=== PATIENT | male | born 1935 | race Caucasian/White ===

== ENCOUNTER → 2016-12-19 | Outpatient (CLI) | payer OTHER, BC ==
[~2016-12-19] MED LIST: ACET325T96 PO; ASPEC81 PO; ATOR-24 PO; CMD5 PO; DIGO0.122 PO; GABA-112 PO; LOSA1TAB PO; MULT-506 PO; TPRSR50 PO
--- NOTE | 2016-12-25 10:26 | CODING QUERY MEDICAL NECESSITY ---
SUPPORTING DIAGNOSIS NEEDED A supporting diagnosis is required for the test/procedure performed on this patient in order for us to be reimbursed by the patient's insurance. Please provide a supporting diagnosis for the following test/procedure listed below next to the test name along with your signature. *If there is no additional diagnosis for this patient that would support the following test/procedure please document that below next to the test/procedure. Test(s)/Procedure(s) that require a supporting diagnosis: DOS 12/19 * PSA DIAGNOSIS: Provider Signature: Date: Thank you Mon[facility] Once completed, please kindly fax back to [phone] For questions please call [phone]
== END | disposition home or self-care (01) ==
LOC: C.LABMFLN 09:48
PROVIDERS: ATTEND Urology
DX: C67.9 Malignant neoplasm of bladder, unspecified (principal); C61 Malignant neoplasm of prostate

== ENCOUNTER → 2017-09-30 | Outpatient (CLI) | payer OTHER, BC ==
[~2017-09-30] MED LIST changes: +ACET-1693 PO; -ACET325T96 PO
[2017-09-30 13:00] LABS: BLOOD UREA NITROGEN 16 mg/dl (7-18); CREATININE 0.78 mg/dl (0.60-1.40)
== END | disposition home or self-care (01) ==
LOC: C.LABMFLN 10:11
PROVIDERS: ATTEND Urology
DX: R31.0 Gross hematuria (principal); C67.9 Malignant neoplasm of bladder, unspecified; C61 Malignant neoplasm of prostate

== ENCOUNTER → 2017-10-19 | Outpatient (CLI) | payer OTHER, BC ==
[~2017-10-19] MED LIST changes: -ACET-1693 PO; +ACET325T96 PO; +OPTIRAY 320 IV PRN
--- NOTE | 2017-10-19 12:03 | DIAGNOSTIC IMAGING REPORT ---
CT UROGRAM CLINICAL HISTORY: Gross hematuria. Bladder cancer. COMPARISON STUDY: Abdominal CT scans dated 02/12/2016 and 02/22/2016. TECHNIQUE: Before and following the IV administration of 95 cc of Optiray 320, CT urogram of the abdomen and pelvis is performed from the lung bases to the proximal femora. Images are reviewed in the axial, sagittal, and coronal planes. IV contrast was administered without complication. A dose lowering technique was utilized adhering to the principles of ALARA. CT DOSE: 1737.80 mGycm FINDINGS: Lung bases: The heart is enlarged and without pericardial effusion. Pacemaker leads are noted. The lung bases are clear noting bibasilar scarring/atelectasis. There is a tiny hiatal hernia. Liver: The contrast-enhanced liver is normal in size, contour, and attenuation. Fatty infiltration is seen adjacent to falciform ligament. There is no intrahepatic biliary ductal dilatation. The hepatic veins and portal veins are patent. Gallbladder: Surgically absent noting clips in the gallbladder fossa. Spleen: Normal in size and attenuation. Pancreas: Unremarkable. Adrenal glands: Unremarkable. Kidneys and ureters: The contrast enhanced kidneys demonstrate cortical atrophy and are without hydronephrosis. There are least 4 nonobstructing left or a calculi measuring up to 5 mm. At least 3 nonobstructing right renal calculi measuring up to 3 mm. The kidneys enhance and excrete symmetrically. There is no enhancing renal cortical mass lesion identified. A 2.5 cm cyst is noted in the right kidney. There is no evidence of urothelial lesion within the renal pelvis bilaterally. There is nonspecific urothelial thickening suggested involving the distal left ureter just above the ileal conduit. This is best seen on axial image #264. Abdominal vasculature: The abdominal aorta is normal in course and caliber noting advanced atherosclerotic calcification. Bowel: Postoperative changes are consistent with a right lower quadrant urostomy. No bowel obstruction is seen. The appendix is well-visualized and normal. Submucosal fat deposition is noted in the distal ileum and colon. Mild wall thickening and hyperemia is suggested involving small bowel loops in the upper pelvis (axial image #267). No surrounding inflammatory change is identified. Peritoneum: There is no intraperitoneal free air or abdominal ascites. Lymphadenopathy: There are mildly enlarged portacaval lymph nodes which measure up to 1.6 cm in short axis. Prominent superior retroperitoneal nodes measure up to 9 mm in short axis. Pelvic viscera: The bladder, prostate, and seminal vesicles are surgically absent. Skeletal structures: The skeletal structures are osteopenic. There is moderate to advanced lumbar sacral spondylosis and scoliosis. There is near complete fusion of the sacroiliac joints. No lytic or blastic lesions are seen. IMPRESSION: 1. There are postoperative changes from cystectomy and right lower quadrant urostomy. 2. The kidneys demonstrate cortical atrophy and are without hydronephrosis. 3. There are numerous small bilateral nonobstructing renal calculi. 4. No enhancing renal cortical mass is identified. 5. There is no clear evidence of urothelial lesion. Nonspecific urothelial thickening is seen involving the distal left ureter just above the ileal conduit. This is of indeterminate etiology and significance. 6. Mild wall thickening and hyperemia is suggested involving loops of small bowel in the upper pelvis. No surrounding inflammatory change is seen. This is nonspecific and may represent a mild infectious/inflammatory enteritis. Additionally, there is submucosal fat deposition seen throughout the small bowel and colon. This is nonspecific but suggests chronic inflammation. Clinical correlation will be essential. 7. Cardiomegaly. 8. Mildly enlarged portacaval and upper retroperitoneal lymph nodes identified. These are nonspecific and similar to previous. 9. Additional findings as above. Electronically signed by: Talat Robin M.D. 10/19/2017 12:01 PM Dictated Date/Time: 10/19/2017 11:48 AM
== END | disposition home or self-care (01) ==
LOC: C.CTS 10:43
PROVIDERS: ATTEND Urology
DX: C67.9 Malignant neoplasm of bladder, unspecified (principal); R31.0 Gross hematuria; N26.1 Atrophy of kidney (terminal); N20.0 Calculus of kidney; Z90.6 Acquired absence of other parts of urinary tract; Z93.6 Other artificial openings of urinary tract status

== ENCOUNTER → 2018-04-15 | Outpatient (CLI) | payer OTHER, BC ==
[~2018-04-15] MED LIST changes: +ACET-1693 PO; -ACET325T96 PO; -OPTIRAY 320 IV PRN
[2018-04-15 13:17] LABS: BASO % 0.3 %; BASO ABS # 0.02 K/uL (0-0.2); EOS % 1.1 %; EOS ABS # 0.08 K/uL (0-0.5); HEMATOCRIT 42.4 % (42-52); HEMOGLOBIN 13.5 g/dL (14.0-18.0); IG# 0.02 K/uL (0.00-0.02); LYMPH ABS # 1.31 K/uL (1.2-3.4); MEAN CORPUSCULAR HEMOGLOBIN 27.4 pg (25-34); MEAN CORPUSCULAR HGB CONC 31.8 g/dl (32-36); MEAN PLATELET VOLUME 10.9 fL (7.4-10.4); MONO % 9.1 %; MONO ABS # 0.66 K/uL (0.11-0.59); NEUT % 71.2 %; PLATELET COUNT 179 K/uL (130-400); RED CELL DISTRIBUTION WIDTH CV 15.3 % (11.5-14.5); RED CELL DISTRIBUTION WIDTH SD 48.2 fL (36.4-46.3); WHITE BLOOD COUNT 7.29 K/uL (4.8-10.8)
[2018-04-15 14:10] LABS: ALBUMIN 3.2 gm/dl (3.4-5.0); ALKALINE PHOSPHATASE 107 U/L (45-117); ALT/SGPT 20 U/L (12-78); AST/SGOT 15 U/L (15-37); BLOOD UREA NITROGEN 13 mg/dl (7-18); CALCIUM 9.3 mg/dl (8.5-10.1); CARBON DIOXIDE 29 mmol/L (21-32); CHOLESTEROL 85 mg/dl (0-200); GLUCOSE 96 mg/dl (70-99); LDL CHOLESTEROL CALCULATED 36 mg/dl; POTASSIUM 4.5 mmol/L (3.5-5.1); SODIUM 139 mmol/L (136-145); TOTAL PROTEIN 7.3 gm/dl (6.4-8.2)
== END | disposition home or self-care (01) ==
LOC: C.LABMFLN 09:24
PROVIDERS: ATTEND Family Medicine
DX: I48.91 Unspecified atrial fibrillation (principal); E78.5 Hyperlipidemia, unspecified; I10 Essential (primary) hypertension

== ENCOUNTER → 2018-05-13 | Outpatient (CLI) | payer OTHER, BC ==
[~2018-05-13] MED LIST changes: +OPTIRAY 320 IV PRN
--- NOTE | 2018-05-13 11:49 | DIAGNOSTIC IMAGING REPORT ---
ABD/PELVIS COMBO CT DOSE: 1791.58 mGycm HISTORY: Prostate carcinoma C61 Neoplasm of prostate, malignant TECHNIQUE: Multiaxial CT images of the abdomen and pelvis were performed pre and post intravenous contrast enhancement. A dose lowering technique was utilized adhering to the principles of ALARA. COMPARISON STUDY: 10/19/2017 FINDINGS: Lung bases are clear. Liver spleen and pancreas remain unremarkable. Prior cholecystectomy. Right renal cyst unchanged. Kidneys negative for hydronephrosis. Right-sided ostomy unchanged in appearance. No evidence for bowel obstructive pattern. Prior cystectomy. Kidneys negative for hydronephrosis. Thickening of the left ureter previously described is not seen currently. Left and to lesser extent right inguinal adenopathy unchanged. No lytic or blastic process. Degenerative changes of the osseous structures are noted. Stable upper abdominal and retroperitoneal adenopathy. No evidence for significant or bulky adenopathy. IMPRESSION: 1. Identical exam compared to the prior study. 2. Stable postoperative changes consistent with cystectomy and a right anterior ostomy placement. 3. Scattered migel pathology also unchanged. 4. Small right renal cyst unchanged The above report was generated using voice recognition software. It may contain grammatical, syntax or spelling errors. Electronically signed by: Juve Senior M.D. 05/13/2018 11:48 AM Dictated Date/Time: 05/13/2018 11:43 AM
== END | disposition home or self-care (01) ==
LOC: C.CTS 11:05
PROVIDERS: ATTEND Urology
DX: C61 Malignant neoplasm of prostate (principal); C67.9 Malignant neoplasm of bladder, unspecified; N28.1 Cyst of kidney, acquired